=== PATIENT | male | born 1965 | race African-American/Black ===

== ENCOUNTER 2018-08-07 09:59 | Emergency (ER) | payer OTHER ==
--- NOTE | 2018-08-07 10:24 | RADIOLOGY REPORT (SQ) ---
EXAM DESCRIPTION: ELBOW RIGHT OVER 2 VIEWS COMPLETED DATE/TIME: 08/07/2018 10:13 am REASON FOR STUDY: bed 14 +deformity right elbow COMPARISON: None. NUMBER OF VIEWS: Four views. TECHNIQUE: AP, lateral, and both oblique radiographic images acquired of the right elbow. LIMITATIONS: None. FINDINGS: MINERALIZATION: Normal. BONES: No acute fracture or dislocation. No worrisome bone lesions. JOINT: No effusion. SOFT TISSUES: Swelling over the olecranon. No foreign body. OTHER: No other significant finding. IMPRESSION: NO RADIOGRAPHIC EVIDENCE OF ACUTE INJURY. TECHNICAL DOCUMENTATION: JOB ID: [id number]- All Rights Reserved Reading location - IP/workstation name: [email or web address]
[2018-08-07] MEDS ORDERED: IBUPROFEN 600 MG TABLET PO ONE (10:33)
--- NOTE | 2018-08-07 10:33 | ER Document Report ---
ED Extremity Problem, Upper - General Chief Complaint: Elbow Injury Stated Complaint: POSSIBLE DISLOCATED ARM Time Seen by Provider: 08/07/18 10:08 Notes: Patient is complaining of pain and swelling of his right elbow. 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 He was on a ladder removing some ceiling panels and as he came down off of the ladder, he noticed pain in his right elbow and then noted swelling over the olecranon area of the right elbow. Patient says the pain and swelling were not there before he went up on the ladder. He did not hit his elbow or bang it or twisted in any way. He did not fall and has not had a fall. Has never had this happen before. Never been told he has gout or any other arthritic conditions. He is insistent that this elbow was normal prior to his ascending the latter this morning. He says he was able to move the elbow at the scene, but it was painful. TRAVEL OUTSIDE OF THE [place] IN LAST 30 DAYS: No Past Medical History - Social History Smoking Status: Unknown if Ever Smoked Cigarette use (# per day): No Family History: Reviewed & Not Pertinent - Medical History Medical History: Negative Musculoskeletal Medical History: Denies Hx Arthritis, Denies Hx Gout, Denies Hx Musculoskeletal Deformity, Denies Hx Musculoskeletal Trauma Surgical Hx: Negative Review of Systems - Review of Systems Notes: CONSTITUTIONAL : Denies fever. CARDIOVASCULAR: Denies chest pain. RESPIRATORY: Denies cough, chest congestion, or shortness of breath. GASTROINTESTINAL: Denies abdominal pain or nausea, vomiting, or diarrhea. GENITOURINARY: Denies difficulty or painful urinating, urinary frequency, blood in urine. Physical Exam - Vital signs Vitals: Temp Pulse Resp BP Pulse Ox 99.5 F 62 16 112/67 100 08/07/18 10:22 08/07/18 10:22 08/07/18 10:22 08/07/18 10:22 08/07/18 10:22 Interpretation: Normal - Notes Notes: PHYSICAL EXAMINATION: GENERAL: Well-appearing, no acute distress. Right arm initially in a splint. HEAD: Atraumatic, normocephalic. NECK: Normal range of motion, supple. LUNGS: Breath sounds clear and equal bilaterally. HEART: Regular rate and rhythm without murmurs heard. ABDOMEN: Soft, nontender. No guarding or rebound or masses felt. Extremity: Painful soft tissue swelling over right olecranon --not an effusion , but soft, swollen tissue like the olecranon bursa. Not erythematous, warm, etc. Elbow joint is normal, with FROM and no adina tenderness or deformity. S/M/R and vascular supply all intact to right arm. Excellent cap refill in fingers and intact radial pulse. Course - Re-evaluation Re-evalutation: 08/07/18 12:19 Labs have all come back normal. Discussed findings with patient. Like a light bulb went off, the patient says, "then I need me some elbow pads!" Apparently, patient's work involves his elbow being on hard surfaces for leverage and in pulling things apart. His exam is consistent with a chronic finding of olecranon bursitis. I recommended the patient, in fact, get some elbow pads to use at work. Recommended ice packs. Recommended Naprosyn, which she prefers to take. - Vital Signs Vital signs: Temp Pulse Resp BP Pulse Ox 97.7 F 54 L 16 109/74 100 08/07/18 12:26 08/07/18 12:26 08/07/18 10:22 08/07/18 12:26 08/07/18 12:26 - Laboratory Result Diagrams: 08/07/18 11:05 08/07/18 11:05 Laboratory results interpreted by me: 08/07/18 11:05 Hgb 12.4 L Hct 37.0 L RDW 14.9 H - Diagnostic Test Radiology results interpreted by me: 08/07/18 11:40 X-ray shows soft tissue swelling over the olecranon, but no other swelling and no effusions present. No fracture seen. Discharge - Discharge Clinical Impression: Olecranon bursitis of right elbow Condition: Stable Disposition: HOME, SELF-CARE Additional Instructions: Olecranon Bursitis You have olecranon bursitis. This is an inflammation of a fluid pouch ( bursa) found over the tip of the elbow. This is usually due to repeated minor irritation or pressure directly on the bursa. On occasion, the bursitis can be due to infection (your doctor has checked for this). Sometimes the doctor decides to remove the fluid from the bursa with a needle. This may be done to check for infection or to ease the pressure caused by the fluid. The usual treatment is rest, local warmth, (or cold if the bursitis is caused by an acute injury), and antiinflammatory medication. Occasionally, an injection of cortisone is necessary. This type of bursitis can become very red and swollen WITHOUT any infection being present. However if pain increases significantly, if the swelling and redness greatly increase, or if you develop fever, you should call the doctor or return for re-examination. Ice Packs Apply ice packs frequently against the painful area. Many different schedules are recommended, such as "20 minutes on, 20 minutes off" or "one hour ice, two hours rest." If you need to work, you may need to go longer between ice treatments. You should plan to have the area ice packed AT LEAST one fourth of the time. The ice should be applied over the wrap, tape, or splint, or over a layer of cloth -- not directly against the skin. Some ice bags have a built-in cloth and can be put directly on the skin. You should obtain some elbow pads to use when you are at work to avoid trauma to the elbow area where you have the pain and swelling today. Take [id number] Naprosyn a couple of times a day for the next 3 or 4 days and then just after that as needed. Return if you have new or worsening symptoms. FOLLOW-UP CARE: If you have been referred to a physician for follow-up care, call the physician s office for an appointment as you were instructed or within the next two days. If you experience worsening or a significant change in your symptoms, notify the physician immediately or return to the Emergency Department at any time for re-evaluation. Forms: Return to Work
[2018-08-07] MEDS ORDERED: NAPROXEN 375 MG TABLET PO ONE (10:55)
[2018-08-07 11:13] LABS: ABSOLUTE EOSINOPHILS # (AUTO) 0.1 10^3/uL (0.0-0.6); ABSOLUTE LYMPHOCYTES (AUTO) 1.6 10^3/uL (0.5-4.7); ABSOLUTE MONOCYTES (AUTO) 0.2 10^3/uL (0.1-1.4); ABSOLUTE NEUT (AUTO) 2.1 10^3/uL (1.7-8.2); BASOPHILS % (AUTO) 0.5 % (0-2); EOSINOPHILS % (AUTO) 1.4 % (0-6); HEMOGLOBIN 12.4 g/dL (13.5-17.0); LYMPHOCYTES % (AUTO) 40.2 % (13-45); MEAN CORPUSCULAR HEMOGLOBIN 27.6 pg (27.0-33.4); MEAN CORPUSCULAR HGB CONC 33.5 g/dL (32.0-36.0); MEAN CORPUSCULAR VOLUME 82 fl (80-97); PLATELET COUNT 161 10^3/uL (150-450); RED CELL DISTRIBUTION WIDTH 14.9 % (11.5-14.0); SEGMENTED NEUTROPHILS % (AUTO) 51.9 % (42-78); TOTAL CELLS COUNTED % (AUTO) 100 %
[2018-08-07 11:33] LABS: ALANINE AMINOTRANSFERASE 33 U/L (21-72); ALBUMIN 3.5 g/dL (3.5-5.0); ALKALINE PHOSPHATASE 46 U/L (38-126); ANION GAP 5 (5-19); ASPARTATE AMINO TRANSFERASE 36 U/L (17-59); BILIRUBIN,DIRECT 0.3 mg/dL (0.0-0.4); BILIRUBIN,TOTAL 0.4 mg/dL (0.2-1.3); BLOOD UREA NITROGEN 14 mg/dL (7-20); CALCIUM 9.2 mg/dL (8.4-10.2); CARBON DIOXIDE 30 mmol/L (22-30); CHLORIDE 107 mmol/L (98-107); GLUCOSE 97 mg/dL (75-110); POTASSIUM 4.3 mmol/L (3.6-5.0); TOTAL PROTEIN 6.4 g/dL (6.3-8.2); URIC ACID 6.8 mg/dL (3.5-8.5)
[2018-08-07 12:28] VITALS: BP 109/74
== END 2018-08-07 12:30 | disposition home or self-care (01) ==
LOC: ER 09:59
DX: M70.21 Olecranon bursitis, right elbow (principal); Y93.H3 Activity, building and construction; Y99.0 Civilian activity done for income or pay
CPT/HCPCS: 99284; 36415; 84550; 85025; 86430; 80053; 73080; J3490

== ENCOUNTER 2018-08-10 08:42 | Emergency (ER) | payer OTHER ==
[2018-08-10 09:06] VITALS: BP 100/54
--- NOTE | 2018-08-10 09:44 | ER Document Report ---
ED Extremity Problem, Upper - General Chief Complaint: Elbow Injury Stated Complaint: FOLLOW UP ARM INJURY Time Seen by Provider: 08/10/18 09:33 Mode of Arrival: Ambulatory Information source: Patient, [facility] Records Notes: Patient is a 53-year-old male comes emergency room for a follow-up visit sent here by his work. Patient was seen here on 08/07/[address] Hicks and was diagnosed with olecranon bursitis. Patient has gone out and gotten elbow pads and states it is feeling better. He also states that he is not taking any medication because he was not given a prescription. But states it is getting better. He includes that work is required him to come back and have it rechecked to make sure it is okay for him to work. Again patient states is feeling much better and the swelling has gone down although it is still somewhat tender to touch. Had a elbow pad to the right arm which does seem to be helping the problem. TRAVEL OUTSIDE OF THE [place] IN LAST 30 DAYS: No - HPI Patient complains to provider of: Pain, Swelling, Elbow Onset: Other - 3 days Recent injury: Possibly Where: Work Quality of pain: Sharp, Throbbing Severity of pain: Mild Pain Level: 1 Associated symptoms: None Exacerbated by: Movement Relieved by: Rest Similar symptoms previously: Yes Recently seen / treated by doctor: Yes Notes: Stated patient was seen by Dr. Hicks on 08/07/2018 diagnosed with olecranon bursitis and is getting better with the elbow pads. Past Medical History - General Information source: Patient - Social History Smoking Status: Never Smoker Cigarette use (# per day): No Chew tobacco use (# tins/day): No Smoking Education Provided: No Frequency of alcohol use: None Drug Abuse: None Lives with: Family Family History: Reviewed & Not Pertinent Patient has suicidal ideation: No Patient has homicidal ideation: No Renal/ Medical History: Denies: Hx Peritoneal Dialysis Musculoskeletal Medical History: Denies Hx Arthritis, Denies Hx Gout, Denies Hx Musculoskeletal Deformity, Denies Hx Musculoskeletal Trauma Review of Systems - Review of Systems Constitutional: No symptoms reported EENT: No symptoms reported Cardiovascular: No symptoms reported Respiratory: No symptoms reported Gastrointestinal: No symptoms reported Genitourinary: No symptoms reported Male Genitourinary: No symptoms reported Musculoskeletal: Joint pain, Joint swelling Hematologic/Lymphatic: No symptoms reported Neurological/Psychological: No symptoms reported -: Yes All other systems reviewed and negative Physical Exam - Vital signs Vitals: Temp Pulse Resp BP Pulse Ox 98.7 F 64 16 100/54 L 97 08/10/18 09:02 08/10/18 09:02 08/10/18 09:02 08/10/18 09:02 08/10/18 09:02 Interpretation: Hypotensive - Notes Notes: Well-nourished well-developed male no apparent distress - General General appearance: Appears well In distress: None - HEENT Head: Normocephalic Eyes: Normal Conjunctiva: Normal - Respiratory Chest status: Nontender Breath sounds: Normal Chest palpation: Normal - Cardiovascular Heart sounds: Normal auscultation Murmur: No - Extremities General upper extremity: Tender, Normal color, Normal ROM, Normal strength General lower extremity: Normal inspection, Nontender, Normal ROM, Normal strength Elbow: Tender, Swollen bursa, Other - Examination patient's right elbow shows minimal swelling at this time around the olecranon area. Patient has full range of motion with extension and flexion. 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 Good pulses are noted distally as well as good cap refill in the nailbeds of the right fingers. From this examination apparently improved from previous ER visit with Dr. Hicks. - Skin Skin Temperature: Warm Skin Moisture: Dry Skin Color: Normal Course - Re-evaluation Re-evalutation: 08/10/18 09:45 At this point I am going to recommend patient continue to use the elbow pad that he is purchased indefinitely. I am also going to add naproxen prescription for him to work on the inflammatory process. I suggested to him to use ice on a nightly basis and also when he has a break. And to come back if he has any concerns or problems. He should be able to maintain a work schedule on normal duty. - Vital Signs Vital signs: Temp Pulse Resp BP Pulse Ox 98.7 F 64 16 100/54 L 97 08/10/18 09:02 08/10/18 09:02 08/10/18 09:02 08/10/18 09:02 08/10/18 09:02 Discharge - Discharge Clinical Impression: Olecranon bursitis of right elbow Condition: Stable Disposition: HOME, SELF-CARE Instructions: Olecranon Bursitis ([facility]) Additional Instructions: Continue to use elbow pad while at work and when not working. Especially when driving which is most common cause of irritation as well. Take the medication as prescribed this will help with pain as well. And use ice at night when you get home or at your break time. You should be able to maintain a normal work schedule at this time. Prescriptions: Naproxen 500 mg PO BID #30 tablet Forms: Parent Work Note
== END 2018-08-10 09:54 | disposition home or self-care (01) ==
LOC: ER 08:42
DX: M70.21 Olecranon bursitis, right elbow (principal)
CPT/HCPCS: 99283